=== PATIENT | male | born 1995 | race Caucasian/White ===

== ENCOUNTER 2018-03-17 06:53 | Emergency (ER) | payer OTHER ==
[~2018-03-17] VITALS: Ht 182.9 cm; Wt 86.2 kg
[2018-03-17] MEDS ORDERED: TETRACAINE 0.5% OPHTH SOLUTION 4ML BOTTLE. OD ONE (07:30)
[2018-03-17] MEDS ORDERED: FLUORESCEIN 1MG EYE STRIP. OD ONE (07:30)
[2018-03-17] MEDS ORDERED: OFLO5DRO RIGHTEYE (07:33)
[2018-03-17] MEDS ORDERED: HYDR115S2 PO (07:33)
--- NOTE | 2018-03-17 07:33 | PHYS DOC ---
Past History Past Medical History: No Pertinent History Smoking: Non-smoker Adult General Chief Complaint Chief Complaint: EYE PROBLEMS HPI HPI 22-year-old male patient complaining of right eye pain and erythema since this morning with resent nasal congestion and cough. Patient had left eye conjunctivitis 1 week ago. He denies fever and chills, blurred vision, vomiting and nausea. Review of Systems Review of Systems Constitutional: Denies fever or chills [] Eyes: Denies change in visual acuity, reports redness, eye pain [] HENT: Reports nasal congestion ] Respiratory: Reports cough , denies shortness of breath [] Cardiovascular: No additional information not addressed in HPI [] GI: Denies abdominal pain, nausea, vomiting, bloody stools or diarrhea [] : Denies dysuria or hematuria [] Musculoskeletal: Denies back pain or joint pain [] Integument: Denies rash or skin lesions [] Neurologic: Denies headache, focal weakness or sensory changes [] Endocrine: Denies polyuria or polydipsia [] All other systems were reviewed and found to be within normal limits, except as documented in this note. Current Medications Current Medications Current Medications Medications (Trade) Dose Ordered Sig/Pamela Start Time Stop Time Status Last Admin Dose Admin Fluorescein Sodium (Ful-Azucena 1mg) 1 strip 1X ONCE 03/17/18 07:30 03/17/18 07:31 03/17/18 07:25 1 STRIP Tetracaine HCl (Tetracaine) 1 drop 1X ONCE 03/17/18 07:30 03/17/18 07:31 03/17/18 07:25 1 DROP Allergies Allergies Allergies Coded Allergies Type Severity Reaction Last Updated Verified No Known Drug Allergies 03/17/18 No Physical Exam Physical Exam Constitutional: Well developed, well nourished, mils distress, non-toxic appearance. [] HENT: Normocephalic, atraumatic, bilateral external ears normal, oropharynx moist, no oral exudates, nasal congestion[] Eyes: PERRLA, EOMI, conjunctival erythema in the right side without fluorescein uptake, no discharge. [] Neck: Normal range of motion, no tenderness, supple, no stridor. [] Cardiovascular:Heart rate regular rhythm, no murmur [] Lungs & Thorax: Bilateral breath sounds clear to auscultation [] Back: No tenderness, no CVA tenderness. [] Extremities: No tenderness, no cyanosis, no clubbing, ROM intact, no edema. [] Neurologic: Alert and oriented X 3, normal motor function, normal sensory function, no focal deficits noted. [] Psychologic: Affect anxious, judgement normal, mood normal. [] EKG EKG [] Radiology/Procedures Radiology/Procedures [] Course & Med Decision Making Course & Med Decision Making discharge: I've spoken with the patient and/or caregivers. I've explained the patient's condition, diagnosis and treatment plan based on information available to me at this time. I've answered the patient's and/or caregivers questions and addressed any concerns. The patient and/or caregivers have a good understanding the patient's diagnosis, condition and treatment plan as can be expected at this point. Vital signs have been stabilized. The patient's condition is stable for discharge from the emergency department. The patient will pursue further outpatient evaluation with her primary care provider or other designated consulting physician as outlined in the discharge instructions. Patient and/or caregivers are agreeable to this plan of care and follow-up instructions have been explained in detail. The patient and/or caregivers have received these instructions in written format and expressed understanding of these discharge instructions. The patient and her caregivers are aware that if any significant change in condition or worsening of symptoms should prompt him to immediately return to this of the closest emergency department. If an emergent department is not readily available I would encourage him to call 911. Kerry Disclaimer Dragon Disclaimer This electronic medical record was generated, in whole or in part, using a voice recognition dictation system. Departure Departure: Impression: Primary Impression: Acute conjunctivitis, right eye Additional Impression: Upper respiratory infection Disposition: HOME, SELF-CARE (at 0727) Condition: IMPROVED Referrals: CHRISTIANO MCCARTHY (PCP) Patient Instructions: Bacterial Conjunctivitis, Upper Respiratory Infection, Adult Additional Instructions: Do not rub your eye Follow-up with your primary care physician in 3-5 days Return to ER if not getting better Scripts Hydrocodone/Chlorphen P-Stirex (Tussionex Pennkinetic Susp) 115 Ml Rehana.er.12h 5 ML PO BID, #60 MISC Prov: ELFEGO MARCUS MD 03/17/18 Ofloxacin (OCUFLOX) 5 Ml Drops 1 DROP RIGHTEYE QID for 5 Days, #5 ML Prov: ELFEGO MARCUS MD 03/17/18 Problem Qualifiers ELFEGO MARCUS MD Mar 17, 2018 07:33
[2018-03-17 07:45] VITALS: BP 118/62
== END 2018-03-17 07:50 | disposition home or self-care (01) ==
LOC: ER 06:53
DX: H10.31 Unspecified acute conjunctivitis, right eye (principal); J06.9 Acute upper respiratory infection, unspecified
CPT/HCPCS: 99283

== ENCOUNTER 2018-05-28 06:36 | Emergency (ER) | payer OTHER ==
[~2018-05-28] VITALS: Ht 182.9 cm; Wt 86.2 kg
[~2018-05-28 06:36] MED LIST: HYDR115S2 PO; OFLO5DRO RIGHTEYE
[2018-05-28] MEDS ORDERED: TETRACAINE 0.5% OPHTH SOLUTION 4ML BOTTLE. OS ONE (07:00)
[2018-05-28] MEDS ORDERED: FLUORESCEIN 1MG EYE STRIP. OS ONE (07:00)
[2018-05-28 07:07] VITALS: BP 135/75
--- NOTE | 2018-05-28 07:34 | PHYS DOC ---
Past History Past Medical History: No Pertinent History Past Surgical History: No Surgical History Smoking: Non-smoker Alcohol Use: None Drug Use: None Adult General Chief Complaint Chief Complaint: EYE PROBLEMS HPI HPI 22-year-old male presents with left eye pain. The patient noticed around 5 PM he started to have some irritation in his left eye. Irritation seemed to worsen throughout the evening. The patient took his contacts out and hopefully get better in the morning. When he woke up this morning, the patient still had significant irritation and discomfort in the left eye. He is concerned for foreign body. He has had a foreign body with infection in the past in the same eye. Denies fever or chills. He has no other complaints. Review of Systems Review of Systems Constitutional: Denies fever or chills [] Eyes: Left eye redness and eye pain [] HENT: Denies nasal congestion or sore throat [] Respiratory: Denies cough or shortness of breath [] Cardiovascular: No additional information not addressed in HPI [] GI: Denies abdominal pain, nausea, vomiting, bloody stools or diarrhea [] : Denies dysuria or hematuria [] Musculoskeletal: Denies back pain or joint pain [] Integument: Denies rash or skin lesions [] Neurologic: Denies headache, focal weakness or sensory changes [] Endocrine: Denies polyuria or polydipsia [] All other systems were reviewed and found to be within normal limits, except as documented in this note. Current Medications Current Medications Current Medications Medications (Trade) Dose Ordered Sig/[facility] Start Time Stop Time Status Last Admin Dose Admin Fluorescein Sodium (Ful-Azucena 1mg) 1 strip 1X ONCE 05/28/18 07:00 05/28/18 07:01 DC 05/28/18 07:00 1 STRIP Tetracaine HCl (Tetracaine) 1 drop 1X ONCE 05/28/18 07:00 05/28/18 07:01 DC 05/28/18 06:59 1 DROP Allergies Allergies Allergies Coded Allergies Type Severity Reaction Last Updated Verified No Known Drug Allergies 03/17/18 No Physical Exam Physical Exam Constitutional: Well developed, well nourished, no acute distress, non-toxic appearance. [] HENT: Normocephalic, atraumatic, bilateral external ears normal, oropharynx moist, no oral exudates, nose normal. [] Eyes: PERRLA, EOMI, conjunctiva left eye erythematous, watery discharge. Fluoresceins and wood lamp exam was negative for corneal abrasion or increased uptake.[] Neck: Normal range of motion, no tenderness, supple, no stridor. [] Cardiovascular:Heart rate regular rhythm, no murmur [] Lungs & Thorax: Bilateral breath sounds clear to auscultation [] Abdomen: Bowel sounds normal, soft, no tenderness, no masses, no pulsatile masses. [] Skin: Warm, dry, no erythema, no rash. [] Back: No tenderness, no CVA tenderness. [] Extremities: No tenderness, no cyanosis, no clubbing, ROM intact, no edema. [] Neurologic: Alert and oriented X 3, normal motor function, normal sensory function, no focal deficits noted. [] Psychologic: Affect normal, judgement normal, mood normal. [] Current Patient Data Vital Signs Vital Signs Date Time Temp Pulse Resp B/P (MAP) Pulse Ox O2 Delivery O2 Flow Rate FiO2 05/28/18 07:07 98.4 84 20 99 Room Air EKG EKG [] Radiology/Procedures Radiology/Procedures [] Course & Med Decision Making Course & Med Decision Making Pertinent Labs and Imaging studies reviewed. (See chart for details) The patient did not have any uptake with his floor some exam. I did not find any obvious foreign bodies in the upper or lower eyelid. Due to the fact he wears contacts, it is possible that it is simply has infection. I will cover him with erythromycin ointment. He is stable for discharge at this time. [] Dragon Disclaimer Dragon Disclaimer This electronic medical record was generated, in whole or in part, using a voice recognition dictation system. Departure Departure: Referrals: CHRISTIANO MCCARTHY (PCP) FELIPE CHEN DO May 28, 2018 07:34
[2018-05-28] MEDS ORDERED: ERYT1OIN6 OP (07:38)
== END 2018-05-28 07:46 | disposition home or self-care (01) ==
LOC: ER 06:36
DX: H57.12 Ocular pain, left eye (principal); H57.89 Other specified disorders of eye and adnexa; L53.8 Other specified erythematous conditions
CPT/HCPCS: 99283

== ENCOUNTER 2018-06-17 02:34 | Emergency (ER) | payer OTHER ==
[~2018-06-17] VITALS: Ht 180.3 cm; Wt 92.1 kg
[~2018-06-17 02:34] MED LIST changes: +ERYT1OIN6 OP
--- NOTE | 2018-06-17 03:21 | PHYS DOC ---
Past History Past Medical History: No Pertinent History Past Surgical History: Other Smoking: Non-smoker Alcohol Use: Occasionally Drug Use: None Adult General Chief Complaint Chief Complaint: SORE THROAT HPI HPI 22-year-old male presents with severe sore throat for the last 1 week. Patient has had pain with swallowing for one week. He also reports having increased fatigue and taking naps during the day. This is unusual for him. He has not had a fever or chills. Due to the pain, he has had decreased oral intake of liquids and solids. Patient does not plan to contact sports. He is in the . Patient has no known history of mono in the past. Review of Systems Review of Systems Constitutional: Denies fever or chills [] Eyes: Denies change in visual acuity, redness, or eye pain [] HENT: Sore throat[] Respiratory: Denies cough or shortness of breath [] Cardiovascular: No additional information not addressed in HPI [] GI: Denies abdominal pain, nausea, vomiting, bloody stools or diarrhea [] : Denies dysuria or hematuria [] Musculoskeletal: Denies back pain or joint pain [] Integument: Denies rash or skin lesions [] Neurologic: Denies headache, focal weakness or sensory changes [] Endocrine: Denies polyuria or polydipsia [] All other systems were reviewed and found to be within normal limits, except as documented in this note. Allergies Allergies Allergies Coded Allergies Type Severity Reaction Last Updated Verified No Known Drug Allergies 03/17/18 No Physical Exam Physical Exam Constitutional: Well developed, well nourished, no acute distress, non-toxic appearance. [] HENT: Normocephalic, atraumatic, bilateral external ears normal, oropharynx dry , no oral exudates, nose normal. Severely swollen tonsils bilaterally.[] Eyes: PERRLA, EOMI, conjunctiva normal, no discharge. [] Neck: Normal range of motion, no tenderness, supple, no stridor. Prominent anterior and posterior cervical lymph nodes bilaterally[] Cardiovascular:Heart rate regular rhythm, no murmur [] Lungs & Thorax: Bilateral breath sounds clear to auscultation [] Abdomen: Bowel sounds normal, soft, no tenderness, no masses, no pulsatile masses. [] Skin: Warm, dry, no erythema, no rash. [] Back: No tenderness, no CVA tenderness. [] Extremities: No tenderness, no cyanosis, no clubbing, ROM intact, no edema. [] Neurologic: Alert and oriented X 3, normal motor function, normal sensory function, no focal deficits noted. [] Psychologic: Affect normal, judgement normal, mood normal. [] Current Patient Data Vital Signs Vital Signs Date Time Temp Pulse Resp B/P (MAP) Pulse Ox O2 Delivery O2 Flow Rate FiO2 06/17/18 02:41 98.0 63 18 98 Room Air EKG EKG [] Radiology/Procedures Radiology/Procedures [] Course & Med Decision Making Course & Med Decision Making Pertinent Labs and Imaging studies reviewed. (See chart for details) The patient's rapid strep is negative. Monospot is pending. The Monospot is negative. The patient appears to have a viral illness. I have given him 10 mg of Decadron. I will discharge him with short course of Schriever 5/325 for the pain. The patient has been using ibuprofen but it is not helping and he is having difficulty sleeping. [] Dragon Disclaimer Dragon Disclaimer This electronic medical record was generated, in whole or in part, using a voice recognition dictation system. Departure Departure: Referrals: PCP,UNKNOWN (PCP) FELIPE CHEN DO Jun 17, 2018 03:21
[2018-06-17] MEDS ORDERED: DEXAMETHASONE SOD PHOS 10 MG/ML VIAL IM ONE (03:30)
[2018-06-17] MEDS ORDERED: DEXAMETHASONE SOD PHOS 10 MG/ML VIAL ONE (03:30)
[2018-06-17 03:34] LABS: MONONUCLEOSIS PATIENT NEGATIVE (NEGATIVE)
[2018-06-17] MEDS ORDERED: HYDR-971 PO (03:45)
[2018-06-17 03:57] VITALS: BP 114/56
== END 2018-06-17 03:59 | disposition home or self-care (01) ==
LOC: ER 02:34
DX: J02.9 Acute pharyngitis, unspecified (principal); R13.10 Dysphagia, unspecified; R53.83 Other fatigue
CPT/HCPCS: 86308; 87070; 87880; 96372; 99284; J1100

== ENCOUNTER 2018-06-19 08:22 | Emergency (ER) | payer OTHER ==
[~2018-06-19] VITALS: Ht 180.3 cm; Wt 90.7 kg
[~2018-06-19 08:22] MED LIST changes: +HYDR-971 PO
[2018-06-19] MEDS ORDERED: IV NORMAL SALINE 1,000ML 1,000 ML IV ONE (09:00)
[2018-06-19 09:11] LABS: BASO # 0.1 x10^3/uL (0.0-0.2); BASO % 0 % (0-3); EOS % 0 % (0-3); HEMATOCRIT 41.9 % (39.0-53.0); HEMOGLOBIN 14.3 g/dL (13.0-17.5); LYMPH % 6 % (24-48); MEAN CORPUSCULAR HEMOGLOBIN 30 pg (25-35); MEAN CORPUSCULAR HGB CONC 34 g/dL (31-37); MEAN CORPUSCULAR VOLUME 87 fL (79-100); MONO # 2.3 x10^3/uL (0.0-1.1); MONO % 13 % (0-9); NEUT # 14.2 x10^3uL (1.8-7.7); NEUT % 81 % (31-73); PLATELET COUNT 268 x10^3/uL (140-400); RED BLOOD COUNT 4.81 x10^6/uL (4.30-5.70); RED CELL DISTRIBUTION WIDTH 13.3 % (11.5-14.5); WHITE BLOOD COUNT 17.6 x10^3/uL (4.0-11.0)
[2018-06-19] MEDS ORDERED: IOHEXOL 300 MG/ML 75 ML VIAL. IV ONE (09:15)
[2018-06-19] MEDS ORDERED: methylPREDNISolone SOD SUCC PF 125 MG/2 ML VIAL. IV ONE (09:15)
[2018-06-19] MEDS ORDERED: KETOROLAC 30 MG/ML VIAL. IV ONE (09:15)
[2018-06-19 09:25] LABS: ALBUMIN 3.6 g/dL (3.4-5.0); ALBUMIN/GLOBULIN RATIO 0.8 (1.0-1.7); CALCIUM 9.2 mg/dL (8.5-10.1); CREATININE 1.1 mg/dL (0.7-1.3); GFR 85.3; POTASSIUM 3.7 mmol/L (3.5-5.1); TOTAL BILIRUBIN 0.7 mg/dL (0.2-1.0)
[2018-06-19 09:30] LABS: MONONUCLEOSIS PATIENT NEGATIVE (NEGATIVE)
[2018-06-19 09:43] LABS: % BANDS 6 % (0-9); % LYMPHS 7 % (24-48); % MONOS 14 % (0-10); % SEGS 72 % (35-66); PLATELET CLUMP PRESENT; PLT ESTIMATE ADEQUATE (ADEQUATE)
[2018-06-19 09:44] LABS: SMUDGE CELLS PRESENT
[2018-06-19] MEDS ORDERED: CLINDAMYCIN 600MG PREMIX 50 ML IV ONE (10:00)
--- NOTE | 2018-06-19 10:23 | PHYS DOC ---
Past History Past Medical History: No Pertinent History Past Surgical History: Other Smoking: Non-smoker Alcohol Use: Occasionally Drug Use: None Adult General Chief Complaint Chief Complaint: SORE THROAT HPI HPI Patient is a 22 year old male who presents with pinning of sore throat for 8 days. Patient complaining of constant sore throat and right-sided facial pain for the last 8 days without cough and congestion and fever and chills. Patient states he is not able to eat and drink because of pain and for the last couple days he is not able to open his mouth. Patient denies shortness of breath and problem with breathing. Patient states he was seen in this emergency room 2 days ago and diagnosis with viral infection and had prescription of Linwood that did not help for his pain and was told that he had positive mono test. According to EMR patient had negative mono and strep test and had a dose of Decadron in emergency room. Review of Systems Review of Systems Constitutional: Denies fever or chills [] Eyes: Denies change in visual acuity, redness, or eye pain [] HENT: Denies nasal congestion, reports sore throat [] Respiratory: Denies cough or shortness of breath [] Cardiovascular: No additional information not addressed in HPI [] GI: Denies abdominal pain, nausea, vomiting, bloody stools or diarrhea [] : Denies dysuria or hematuria [] Musculoskeletal: Denies back pain or joint pain [] Integument: Denies rash or skin lesions [] Neurologic: Denies headache, focal weakness or sensory changes [] Endocrine: Denies polyuria or polydipsia [] All other systems were reviewed and found to be within normal limits, except as documented in this note. Current Medications Current Medications Current Medications Medications (Trade) Dose Ordered Sig/Pamela Start Time Stop Time Status Last Admin Dose Admin Clindamycin Phosphate 50 ml @ 100 mls/hr 1X ONCE 06/19/18 10:00 06/19/18 10:29 06/19/18 10:08 100 MLS/HR Iohexol (Omnipaque 300 Mg/ml) 75 ml 1X ONCE 06/19/18 09:15 06/19/18 09:16 DC 06/19/18 09:27 75 ML Ketorolac Tromethamine (Toradol 30mg Vial) 30 mg 1X ONCE 06/19/18 09:15 06/19/18 09:16 DC 06/19/18 10:07 30 MG Methylprednisolone Sodium Succinate (SOLU-Medrol 125MG VIAL) 125 mg 1X ONCE 06/19/18 09:15 06/19/18 09:16 DC 06/19/18 10:07 125 MG Sodium Chloride 1,000 ml @ 1,000 mls/hr 1X ONCE 06/19/18 09:00 06/19/18 09:59 DC 06/19/18 10:07 1,000 MLS/HR Allergies Allergies Allergies Coded Allergies Type Severity Reaction Last Updated Verified No Known Drug Allergies 03/17/18 No Physical Exam Physical Exam Constitutional: Well developed, well nourished, moderate distress, non-toxic appearance. [] HENT: Normocephalic, atraumatic, bilateral external ears normal,, trismus, oropharynx moist, unable to visualize tonsils because of trismus, nasal speech, facial edema Eyes: PERRLA, EOMI, conjunctiva normal, no discharge. [] Neck: Normal range of motion, no tenderness, supple, no stridor. [] Cardiovascular:Heart rate regular rhythm, no murmur [] Lungs & Thorax: Bilateral breath sounds clear to auscultation [] Abdomen: Bowel sounds normal, soft, no tenderness, no masses, no pulsatile masses. [] Skin: Warm, dry, no erythema, no rash. [] Back: No tenderness, no CVA tenderness. [] Extremities: No tenderness, no cyanosis, no clubbing, ROM intact, no edema. [] Neurologic: Alert and oriented X 3, normal motor function, normal sensory function, no focal deficits noted. [] Psychologic: Affect normal, judgement normal, mood normal. [] Current Patient Data Vital Signs Vital Signs Date Time Temp Pulse Resp B/P (MAP) Pulse Ox O2 Delivery O2 Flow Rate FiO2 06/19/18 09:21 98.6 71 22 96 Room Air Lab Results Laboratory Tests Test 06/19/18 08:59 06/19/18 09:00 White Blood Count 17.6 x10^3/uL (4.0-11.0) H Red Blood Count 4.81 x10^6/uL (4.30-5.70) Hemoglobin 14.3 g/dL (13.0-17.5) Hematocrit 41.9 % (39.0-53.0) Mean Corpuscular Volume 87 fL (79-100) Mean Corpuscular Hemoglobin 30 pg (25-35) Mean Corpuscular Hemoglobin Concent 34 g/dL (31-37) Red Cell Distribution Width 13.3 % (11.5-14.5) Platelet Count 268 x10^3/uL (140-400) Neutrophils (%) (Auto) 81 % (31-73) H Lymphocytes (%) (Auto) 6 % (24-48) L Monocytes (%) (Auto) 13 % (0-9) H Eosinophils (%) (Auto) 0 % (0-3) Basophils (%) (Auto) 0 % (0-3) Neutrophils # (Auto) 14.2 x10^3uL (1.8-7.7) H Lymphocytes # (Auto) 1.0 x10^3/uL (1.0-4.8) Monocytes # (Auto) 2.3 x10^3/uL (0.0-1.1) H Eosinophils # (Auto) 0.0 x10^3/uL (0.0-0.7) Basophils # (Auto) 0.1 x10^3/uL (0.0-0.2) Segmented Neutrophils % 72 % (35-66) H Band Neutrophils % 6 % (0-9) Lymphocytes % 7 % (24-48) L Monocytes % 14 % (0-10) H Smudge Cells Present Platelet Estimate Adequate (ADEQUATE) Platelet Clumps, EDTA Present Sodium Level 138 mmol/L (136-145) Potassium Level 3.7 mmol/L (3.5-5.1) Chloride Level 102 mmol/L (98-107) Carbon Dioxide Level 29 mmol/L (21-32) Anion Gap 7 (6-14) Blood Urea Nitrogen 12 mg/dL (8-26) Creatinine 1.1 mg/dL (0.7-1.3) Estimated GFR (Cockcroft-Gault) 85.3 BUN/Creatinine Ratio 11 (6-20) Glucose Level 95 mg/dL (70-99) Lactic Acid Level 0.8 mmol/L (0.4-2.0) Calcium Level 9.2 mg/dL (8.5-10.1) Total Bilirubin 0.7 mg/dL (0.2-1.0) Aspartate Amino Transferase (AST) 11 U/L (15-37) L Alanine Aminotransferase (ALT) 19 U/L (16-63) Alkaline Phosphatase 82 U/L (46-116) Total Protein 8.0 g/dL (6.4-8.2) Albumin 3.6 g/dL (3.4-5.0) Albumin/Globulin Ratio 0.8 (1.0-1.7) L Heterophil Agglutinins Negative (NEGATIVE) Group A Streptococcus Rapid Negative (NEGATIVE) EKG EKG [] Radiology/Procedures Radiology/Procedures [address] [address] IMAGING REPORT Signed PATIENT: CLEVELAND WADE ACCOUNT: [id number] : 1995 LOCATION: ER AGE: 22 SEX: M EXAM STATUS: REG ER ORD. PHYSICIAN: ELFEGO MARCUS MD REASON: severe sore throat for 8 days PROCEDURE: CT SOFT TISSUE NECK W/CONTRAST CT SOFT TISSUE NECK W/CONTRAST Indication: THROAT SWOLLEN AND EXTREMELY PAINFUL FOR 8 DAYS. OMNI 300 75CC Exposure: One or more of the following individualized dose reduction techniques were utilized for this examination: 1. Automated exposure control 2. Adjustment of the mA and/or kV according to patient size 3. Use of iterative reconstruction technique. Comparison: None are available. Contrast:Intravenous contrast was administered. FINDINGS: Visualized sinuses: Clear Visualized orbits: Not included in the [id number] Vessels: Grossly unremarkable, note this is not an angiographic study. Parotid glands: Unremarkable Submandibular glands: Unremarkable Marketed enlargement of the palatine tonsils, right greater than left. Hypodense tissue in the right parapharyngeal soft tissues, measures 2.5 cm x 1.7 cm x 2.7 cm. Measures slightly greater than fluid density, compatible with a parapharyngeal/peritonsillar abscess or phlegmon. There is severe effacement and narrowing of the airway at the level of the enlarged tonsils and parapharyngeal abnormality. There is also slight deviation of the airway towards the left. Mild fatty stranding in the prefabricator space. There is also fatty stranding in the soft tissues to the right of the pharynx and larynx below the abscess. There is enlargement of the adenoidal tissue. Lymph nodes: Enlarged cervical lymph nodes bilaterally, more so on the right. Largest node measures 19 mm in short axis. Prominent submental lymph nodes. Thyroid: Isthmus measures 7 mm, mildly thickened. Upper thorax: Lungs are clear Soft tissues: Unremarkable Mandible/maxilla: Lucencies at the expected location of the posterior mandibular molars bilaterally, could be due to extraction. Cervical spine: Vertebral body height and alignment are intact IMPRESSION: 1. Marked enlargement of the palatine tonsils. There is a right peripharyngeal/peritonsillar hypodense collection, compatible with abscess or phlegmon. These findings result in severe narrowing/effacement of the airway. 2. Cervical lymph node enlargement, greater on the right, is nonspecific but would most likely be inflammatory or infectious in this clinical context. 3. Findings discussed with Dr. Marcus in the emergency room at 10:30 AM. Electronically signed by: Cong Stringer MD (06/19/2018 10:30 AM) [id number] DICTATED AND SIGNED BY: CONG STRINGER MD DATE: 06/19/18 1007 CC: ELFEGO MARCUS MD; PCP,UNKNOWN ~ Course & Med Decision Making Course & Med Decision Making Pertinent Labs and Imaging studies reviewed. (See chart for details) Evaluation of patient in ER showed 22-year-old male patient with history of 8 days sore throat. Patient had nasal speech moderate distress and trismus. Labs showed leukocytosis and CT of soft tissue of neck showed large peritonsillar abscess with pressure on airway. transfer team was informed at [address] Uriel Johns on-call ENT accepted admission at 1100. Patient treated with IV fluid, Solu-Medrol, clindamycin, Protonix and fentanyl and felt better. Dragon Disclaimer Dragon Disclaimer This electronic medical record was generated, in whole or in part, using a voice recognition dictation system. Departure Departure: Impression: Primary Impression: Peritonsillar abscess Additional Impression: Leukocytosis Disposition: 05 XFER OTHER ([facility] at 1101) Condition: GUARDED Referrals: PCP,UNKNOWN (PCP) Critical Care Time Critical care time was 85 minutes exclusive of procedures. Problem Qualifiers ELFEGO MARCUS MD Jun 19, 2018 10:23
--- NOTE | 2018-06-19 10:33 | RAD ---
CT SOFT TISSUE NECK W/CONTRAST Indication: THROAT SWOLLEN AND EXTREMELY PAINFUL FOR 8 DAYS. OMNI 300 75CC Exposure: One or more of the following individualized dose reduction techniques were utilized for this examination: 1. Automated exposure control 2. Adjustment of the mA and/or kV according to patient size 3. Use of iterative reconstruction technique. Comparison: None are available. Contrast:Intravenous contrast was administered. FINDINGS: Visualized sinuses: Clear Visualized orbits: Not included in the [id number] Vessels: Grossly unremarkable, note this is not an angiographic study. Parotid glands: Unremarkable Submandibular glands: Unremarkable Marketed enlargement of the palatine tonsils, right greater than left. Hypodense tissue in the right parapharyngeal soft tissues, measures 2.5 cm x 1.7 cm x 2.7 cm. Measures slightly greater than fluid density, compatible with a parapharyngeal/peritonsillar abscess or phlegmon. There is severe effacement and narrowing of the airway at the level of the enlarged tonsils and parapharyngeal abnormality. There is also slight deviation of the airway towards the left. Mild fatty stranding in the renewals manager space. There is also fatty stranding in the soft tissues to the right of the pharynx and larynx below the abscess. There is enlargement of the adenoidal tissue. Lymph nodes: Enlarged cervical lymph nodes bilaterally, more so on the right. Largest node measures 19 mm in short axis. Prominent submental lymph nodes. Thyroid: Isthmus measures 7 mm, mildly thickened. Upper thorax: Lungs are clear Soft tissues: Unremarkable Mandible/maxilla: Lucencies at the expected location of the posterior mandibular molars bilaterally, could be due to extraction. Cervical spine: Vertebral body height and alignment are intact IMPRESSION: 1. Marked enlargement of the palatine tonsils. There is a right peripharyngeal/peritonsillar hypodense collection, compatible with abscess or phlegmon. These findings result in severe narrowing/effacement of the airway. 2. Cervical lymph node enlargement, greater on the right, is nonspecific but would most likely be inflammatory or infectious in this clinical context. 3. Findings discussed with Dr. Thacker in the emergency room at 10:30 AM. Electronically signed by: Cong Stringer MD (06/19/2018 10:30 AM) [id number]
[2018-06-19 11:10] VITALS: BP 121/59
== END 2018-06-19 11:43 | disposition short-term general hospital (02) ==
LOC: ER 08:22
DX: J36 Peritonsillar abscess (principal); D72.829 Elevated white blood cell count, unspecified; R59.0 Localized enlarged lymph nodes
CPT/HCPCS: 36415; 70491; 80053; 83605; 85007; 85025; 86308; 87070; 87880; 96365; 96375; 99285; J1885; J2930; J3010; J3490; Q9967; J7030